=== PATIENT | male | born 1995 | race Caucasian/White ===

== ENCOUNTER 2017-09-10 17:02 | Emergency (ER) | payer OTHER ==
[2017-09-10] MEDS ORDERED: KETOROLAC 60 MG/2 ML VIAL IM STA (19:00)
[2017-09-10] MEDS ORDERED: DEXAMETHASONE 10 MG/ML VIAL PO STA (19:00)
--- NOTE | 2017-09-10 19:03 | ED Physician Documentation ---
History of Present Illness - Stated complaint Stated Complaint: WEIGHTS DROPPED ON NECK - Chief complaint Chief Complaint: Back Pain - History obtained from History obtained from: Patient - History of Present Illness Timing: Today, How many hours ago (4) Pain level max: 7 Pain level now: 4 Improved by: remaining still Worsened by: moving his neck - Additonal information Additional information: Patient lifting weights above his head today, hit in the leg by another weight, dropped his weight (did not strike his head or neck) and then developed R sided neck pain and initially some numbness to the R arm. Numbness now resolved. still has mild R sided neck pain. Review of Systems Constitutional: denies: Fever, Chills Eyes: denies: Decreased vision, Photophobia Ears: denies: Ear pain Throat: denies: Sore throat Cardiac: denies: Chest pain / pressure Respiratory: denies: Cough GI: denies: Abdominal Pain, Nausea, Vomiting, Diarrhea Skin: denies: Rash Musculoskeletal: denies: Back pain, Extremity swelling Neurologic: denies: Focal weakness, Confused, Altered mental status, Headache, Head injury, LOC PD PAST MEDICAL HISTORY - Past Medical History Past Medical History: No - Past Surgical History Past Surgical History: No - Present Medications Home Medications: Ambulatory Orders Medication Instructions Recorded Confirmed Cyclobenzaprine [Flexeril] 10 mg PO TID PRN #20 tablet 09/10/17 Ibuprofen [Motrin] 800 mg PO Q8H PRN #30 tablet 09/10/17 - Allergies Allergies/Adverse Reactions: Allergies Allergy/AdvReac Type Severity Reaction Status Date / Time No Known Drug Allergies Allergy Verified 09/10/17 17:12 - Social History Does the pt smoke?: No Smoking Status: Never smoker - Immunizations Immunizations are current?: Yes PD ED PE NORMAL - Vitals Vital signs reviewed: Yes - General General: Alert and oriented X 3, No acute distress, Well developed/nourished - HEENT HEENT: Atraumatic, PERRL, EOMI, Ears normal, Moist mucous membranes, Pharynx benign - Neck Neck: Supple, no meningeal sign, No bony TTP, Other (TTP over the R trapezius. no bony tenderness over the neck. FROM present, but pain with turning the head R or left. Full flexion and extension with only mild discomfort at end of ROM) - Cardiac Cardiac: RRR - Respiratory Respiratory: No respiratory distress, Clear bilaterally - Back Back: No spinal TTP - Derm Derm: Warm and dry - Extremities Extremities: No deformity, No tenderness to palpate, Normal ROM s pain - Neuro Neuro: Alert and oriented X 3, ssds mk 2 advanced operator 2-12 intact, No motor deficit, No sensory deficit Eye Opening: Spontaneous Motor: Obeys Commands Verbal: Oriented GCS Score: 15 Results - Vitals Vitals: Vital Signs - 24 hr 09/10/17 09/10/17 17:08 19:36 Temperature 36.5 C Heart Rate 98 77 Respiratory 18 16 Rate Blood Pressure 150/76 H 127/79 O2 Saturation 100 100 Oxygen O2 Source Room air PD MEDICAL DECISION MAKING - ED course Complexity details: considered differential, d/w patient ED course: Patient is a 21-year-old male with what appears to be a right trapezial strain versus cervical muscle strain and spasm. Will place on NSAIDs for home as well as muscle relaxants. No evidence of cervical spine fracture. Negative nexus criteria. No evidence of spinal cord injury. Normal neurological exam here. Patient counseled regarding signs and symptoms for which I believe and urgent re -evaluation would be necessary. Patient with good understanding of and agreement to plan and is comfortable going home at this time This document was made in part using voice recognition software. While efforts are made to proofread this document, sound alike and grammatical errors may occur. Departure - Departure Disposition: 01 Home, Self Care Clinical Impression: Neck muscle spasm Condition: Good Instructions: ED Spasm Neck No Injury Follow-Up: your,doctor in 1 week [Other] Prescriptions: Cyclobenzaprine [Flexeril] 10 mg PO TID PRN #20 tablet PRN Reason: Spasms Ibuprofen [Motrin] 800 mg PO Q8H PRN #30 tablet PRN Reason: PAIN &/OR FEVER Comments: Return if you worsen. this should improve over the next few days. Do not drive or operate heavy machinery while taking flexeril. Forms: Activity restrictions Discharge Date/Time: 09/10/17 19:36
[2017-09-10 19:38] VITALS: BP 127/79
== END 2017-09-10 19:36 | disposition home or self-care (01) ==
LOC: ED 17:02
DX: M62.838 Other muscle spasm (principal)
CPT/HCPCS: 96372; 99283

== ENCOUNTER 2018-08-04 07:24 | Day surgery (SDC) | payer OTHER ==
[~2018-08-04 07:24] MED LIST: ceFAZolin 2 GM/50 ML 2 GM/50 ML BAG IV ONE
[2018-08-04] MEDS ORDERED: LIDOCAINE-MPF 1% 30 ML VIAL ONE (07:30)
[2018-08-04] MEDS ORDERED: BUPIVACAINE 0.5%-EPI 1:200000 PF 30 ML VIAL ONE (07:30)
[2018-08-04] MEDS ORDERED: LACTATED RINGERS 1,000 ML IV ONE (08:03)
--- NOTE | 2018-08-04 08:17 | ANESTHESIA ---
Pre-Anesthesia VS, & Labs - Diagnosis left inginal hernia - Procedure Left inginal hernia repair with mesh Vital Signs: Temp Pulse Resp BP Pulse Ox 36.1 C L 76 16 142/84 H 99 08/04/18 07:44 08/04/18 07:44 08/04/18 07:44 08/04/18 07:44 08/04/18 07:44 Height 6 ft Weight (kg) 92 kg Body Mass Index 29.1 - NPO >8 hours Home Medications and Allergies Allergies/Adverse Reactions: Allergies Allergy/AdvReac Type Severity Reaction Status Date / Time No Known Drug Allergies Allergy Verified 09/10/17 17:12 Anes History & Medical History - Medical History Cardiovascular: reports: None Pulmonary: reports: None Gastrointestinal: reports: None Urinary: reports: None Musculoskeletal: reports: None Endocrine/Autoimmune: reports: None Skin: reports: None Smoking Status: Never smoker - Surgical History General: Appendectomy Orthopedic: Arthroscopic surgery Exam General: Alert Dental: WNL Mouth Opening: Can't Open Mouth Neck Mobility: Normal Mallampati classification: II Thyromental Distance: greater than 6 cm Respiratory: Lungs clear Cardiovascular: Regular rate Plan Anesthesia Type: MAC (General backup) Consent for Procedure(s) Verified and Reviewed: Yes Code Status: Attempt Resuscitation ASA classification: 1-Healthy patient Is this case an emergency?: No
[2018-08-04] MEDS ORDERED: DEXAMETHASONE 4 MG/ML VIAL IVP ONE (09:30)
[2018-08-04] MEDS ORDERED: LIDOCAINE 1% 50 ML MDV SUBQ ONE ×2 (09:30)
[2018-08-04] MEDS ORDERED: ceFAZolin 2 GM/50 ML 2 GM/50 ML BAG IV ONE (09:30)
[2018-08-04] MEDS ORDERED: MIDAZOLAM 2 MG/2 ML VIAL IVP ONE (09:30)
[2018-08-04] MEDS ORDERED: fentaNYL 100 MCG/2 ML VIAL IVP ONE (09:30)
[2018-08-04] MEDS ORDERED: BUPIVACAINE 0.5%-EPI 1:200000 PF 30 ML VIAL SUBQ ONE ×2 (09:30)
[2018-08-04] MEDS ORDERED: ONDANSETRON 4 MG/2 ML VIAL IVP ONE (09:30)
[2018-08-04] MEDS ORDERED: LIDOCAINE-MPF 2% 5 ML VIAL IM ONE (09:30)
[2018-08-04] MEDS ORDERED: PROPOFOL 200 MG/20 ML VIAL IVP ONE (09:30)
[2018-08-04] MEDS ORDERED: KETOROLAC 30 MG/ML VIAL IVP ONE (09:30)
[2018-08-04] MEDS ORDERED: ceFAZolin 1 GM VIAL IR ONE (10:02)
[2018-08-04] MEDS ORDERED: ACETAMINOPHEN 325 MG TABLET PO PRN (10:51)
[2018-08-04] MEDS ORDERED: oxyCODONE 5 MG TABLET PO PRN (10:51)
[2018-08-04] MEDS ORDERED: IBUPROFEN 600 MG TABLET PO PRN (10:51)
[2018-08-04] MEDS ORDERED: ONDANSETRON 4 MG/2 ML VIAL IVP PRN (10:51)
[2018-08-04 11:50] VITALS: BP 121/65
--- NOTE | 2018-08-04 14:48 | OPERATIVE REPORT ---
DATE OF SERVICE: 08/04/2018 Physician: Karel Swanson MD PREOPERATIVE DIAGNOSIS: Symptomatic left inguinal hernia. POSTOPERATIVE DIAGNOSES: 1. Symptomatic left inguinal hernia. 2. Atypical left groin pigmented skin lesion. PROCEDURES: 1. Open repair of left inguinal hernia with polypropylene mesh. 2. Excisional biopsy of left groin skin lesion. FINDINGS: A 4 mm dark irregularly pigmented and bordered macular lesion was present in the left groi n. A small indirect left inguinal hernia was identified. There was no evidence of direct or femoral hernia. INDICATIONS FOR PROCEDURE: The patient is a 22-year-old male with an intermittent left groin bulge. Examination revealed a small reducible left inguinal hernia. He was advised to undergo repair. PROCEDURE: After informed consent, the patient was taken to the operating room where he was placed u nder general anesthesia by Damián Barr CRNA. He had been clipped in the ESU prior to being trans ferred to the operating room. Preoperative preparation also included application of sequential calf compression boots, administration of 2 grams cefazolin intravenously within an hour of incision. His left groin was prepared with ChloraPrep solution and draped in the usual sterile fashion. Examinati on of the left groin revealed a 4 mm irregularly pigmented border macular lesion in the left groin in the skin line at the location where the groin incision was going to be made. The groin incision was therefore made to incorporate the skin lesion with 2 to 3 mm margins and this was sent for pathologi c evaluation. Hemostasis achieved with electrocautery incision was then deepened through the subcuta neous tissues until the external oblique aponeurosis was identified and was incised along the lines o f its fibers. I managed the open external ring and expose the internal ring. Hemostasis also achiev ed with 2-0 Vicryl ties. The spermatic cord was mobilized and encircled with a Salvatore drain. The i lioinguinal nerve was small and was divided to avoid entrapment and neuralgia issues postoperatively. The cord was dissected, isolating a small indirect sac, which was dissected free from surrounding c ord structures to the level of the internal ring. The sac was entered and a finger inserted in the p eritoneal cavity in search for direct and femoral hernias was made and none was identified. The sac was twisted and doubly highly ligated with 3-0 silk suture ligatures. Excess hernia sac was amputate d and discarded. There was no significant cord lipoma. Hemostasis was assured. The wound was irrig ated with antibiotic solution containing 1 gram of Ancef per liter. A Covidien medium weight expande d polypropylene mesh precut and slotted was soaked in the antibiotic solution and brought onto the uribe rgical field where it was placed over the inguinal floor and secured in place with continuous 3-0 Pro ramon sutures securing it to the shelving edge of Poupart's ligament inferiorly, to the internal obliq ue muscle layer laterally and superiorly and to the lateral border of the rectus sheath medially. Ca re was taken to avoid excessive tightening of the patch around the cord at the level of the internal ring. After hemostasis was assured, the wound was again irrigated with antibiotic solution, followin g which wound closure was accomplished in layers, closing the external oblique aponeurosis overlying the cord. Continuous 2-0 Vicryl, followed by continuous 3-0 Vicryl to reapproximate Eugenia's fascia and 4-0 Monocryl subcuticular skin closure, followed by Dermabond completed wound closure. Anesthesi a was terminated and patient was transferred to the recovery room in satisfactory condition. Sponge and needle counts were correct x2 and no drains were used. TD: 08/04/2018 11:08
== END 2018-08-04 07:25 | disposition home or self-care (01) ==
LOC: SDS 07:24
PROVIDERS: ATTEND Internal Medicine Gastroenterology
PROC: 0YU60JZ Supplement Left Inguinal Region with Synthetic Substitute, Open Approach (ICD-10-PCS; principal; 2018-08-04 08:30)
DX: K40.90 Unilateral inguinal hernia, without obstruction or gangrene, not specified as recurrent (principal); D22.5 Melanocytic nevi of trunk
CPT/HCPCS: 49505; J0690; J7120